=== PATIENT | female | born 1990 | race Two or more races ===

== ENCOUNTER → 2022-08-21 | Emergency (ER) | payer MEDICAID ==
[~2022-08-21] VITALS: Ht 154.9 cm; Wt 64.9 kg
[~2022-08-21] MED LIST: DICY10CA PO; DICYCLOMINE HCL 10 MG CAP PO ONE; ONDA-144 PO; ONDANSETRON ODT 4 MG TAB PO ONE
[2022-08-21 08:33] VITALS: BP 131/80
== END | disposition home or self-care (01) ==
LOC: ER 07:19
DX: K52.9 Noninfective gastroenteritis and colitis, unspecified (principal)
CPT/HCPCS: 99283; J0500; Q0162